=== PATIENT | female | born 1990 | race Caucasian/White ===

== ENCOUNTER → 2016-08-15 | Outpatient (CLI) | payer OTHER ==
[~2016-08-15] VITALS: Ht 154.9 cm; Wt 83.6 kg
[~2016-08-15] MED LIST: CEPHALEXIN500 M1 PO; FIORICET 325 MG1 TA1 PO; IBU600 MG PO; PERCOCET 325 MG1 TA2 PO; PRENATAL PO; ZANTAC 150MG T150 MG PO; ZOFRAN 4MG T4 MG/TAB
[2016-08-15 05:51] VITALS: BP 123/81; PULSE 73
[2016-08-15 06:00] VITALS: BP 110/56; BP 97/53; PULSE 64; PULSE 89
[2016-08-15 07:00] VITALS: BP 102/50; PULSE 72
[2016-08-15 07:18] LABS: BASO # 0.1 (0.0-0.2); BASO % 0.6 % (0.0-2.0); EOS # 0.7 (0.0-0.7); EOS % 8.9 % (0-4.0); GRAN # 4.3 (1.4-6.5); GRAN % 53.1 % (42.2-75.2); LYMPH # 2.3 (1.2-3.4); LYMPH % 27.8 % (20.0-51.0); MEAN CELL VOLUME 88 fl (80.0-100.0); MEAN CORPUSCULAR HGB CONC 33 g/dl (33.0-37.0); MEAN PLATELET VOLUME 11.7 fl (7.4-10.4); MONO # 0.7 (0.1-0.6); PLATELET COUNT 278 K/mm3 (130-400); RED BLOOD COUNT 3.97 M/mm3 (4.10-5.30); REDCELL DISTRIBUTION WIDTH-CV 13.1 % (11.5-14.5); WHITE BLOOD COUNT 8.2 K/mm3 (4.8-10.8)
[2016-08-15 07:33] LABS: HEMOGLOBIN 11.5 g/dl (12.5-16.0); MEAN CORPUSCULAR HEMOGLOBIN 29 pg (27.0-31.0)
[2016-08-15 07:38] LABS: ADJUSTED CALCIUM 9.9 mg/dL (8.4-10.2); ALBUMIN 3.3 gm/dL (3.5-5.0); BILIRUBIN,TOTAL 0.4 mg/dL (0.0-1.0); CALCIUM 9.3 mg/dL (8.4-10.2); CREATININE, serum 0.6 mg/dL (0.52-1.25); POTASSIUM 3.8 mmol/L (3.4-5.0); TOTAL PROTEIN 6.5 gm/dL (6.4-8.2)
[2016-08-15 08:00] VITALS: BP 118/44; PULSE 69
[2016-08-15 08:48] LABS: PH 6 (5-8); SQUAMOUS EPITHELIAL 0-2 /hpf; URINE APPEARANCE Hazy; URINE BACTERIA None Seen /hpf; URINE BILIRUBIN Negative (NEGATIVE); URINE BLOOD Negative (NEGATIVE); URINE COLOR Yellow; URINE GLUCOSE Negative (NEGATIVE); URINE KETONE Negative (NEGATIVE); URINE UROBILINOGEN Negative (NEGATIVE); URINE WBC 0-2 /hpf
[2016-08-15 09:00] VITALS: BP 118/84; PULSE 71
== END ==
LOC: LDRO 05:31
PROVIDERS: Obstetrics & Gynecology
DX: O26.893 Other specified pregnancy related conditions, third trimester (principal); R51 Headache; Z3A.33 33 weeks gestation of pregnancy

== ENCOUNTER 2016-09-11 17:30 | Outpatient (CLI) | payer OTHER ==
[~2016-09-11] VITALS: Ht 154.9 cm; Wt 81.4 kg
[2016-09-11 17:45] VITALS: BP 138/80; PULSE 83; TEMP 98.7
[2016-09-11] MEDS ORDERED: PRENATAL PO (17:50)
[2016-09-11] MEDS ORDERED: ZANTAC 150MG T150 MG PO (17:51)
[2016-09-11 18:05] VITALS: BP 123/79; PULSE 76
[2016-09-11 18:15] LABS: BASO % 0.4 % (0.0-2.0); EOS # 0.3 (0.0-0.7); EOS % 2.8 % (0-4.0); GRAN # 5.6 (1.4-6.5); GRAN % 62.7 % (42.2-75.2); HEMATOCRIT 38.5 % (37.0-47.0); HEMOGLOBIN 12.9 g/dl (12.5-16.0); LYMPH # 2.2 (1.2-3.4); LYMPH % 24.6 % (20.0-51.0); MEAN CELL VOLUME 86 fl (80.0-100.0); MEAN CORPUSCULAR HEMOGLOBIN 29 pg (27.0-31.0); MEAN CORPUSCULAR HGB CONC 34 g/dl (33.0-37.0); MEAN PLATELET VOLUME 12.6 fl (7.4-10.4); MONO # 0.8 (0.1-0.6); MONO % 8.8 % (1.7-9.3); PLATELET COUNT 293 K/mm3 (130-400); REDCELL DISTRIBUTION WIDTH-CV 13.4 % (11.5-14.5); WHITE BLOOD COUNT 8.9 K/mm3 (4.8-10.8)
[2016-09-11 18:19] LABS: PH 5 (5-8); URINE APPEARANCE Cloudy; URINE BACTERIA Rare /hpf; URINE BILIRUBIN Negative (NEGATIVE); URINE BLOOD Negative (NEGATIVE); URINE COLOR Yellow; URINE GLUCOSE Negative (NEGATIVE); URINE KETONE Negative (NEGATIVE); URINE UROBILINOGEN Negative (NEGATIVE)
[2016-09-11 18:41] LABS: ADJUSTED CALCIUM 9.5 mg/dL (8.4-10.2); ALBUMIN 3.7 gm/dL (3.5-5.0); BILIRUBIN,TOTAL 0.6 mg/dL (0.0-1.0); CALCIUM 9.3 mg/dL (8.4-10.2); CREATININE, serum 0.6 mg/dL (0.52-1.25); POTASSIUM 4.1 mmol/L (3.4-5.0); TOTAL PROTEIN 7.4 gm/dL (6.4-8.2)
== END 2016-09-11 20:10 | disposition home or self-care (01) ==
LOC: LDRO 17:30 → LDR 17:41 → LDRO 20:10
PROVIDERS: Obstetrics & Gynecology
DX: O21.0 Mild hyperemesis gravidarum (principal); Z3A.37 37 weeks gestation of pregnancy
CPT/HCPCS: J2405; J7120

== ENCOUNTER 2016-09-15 23:32 | Outpatient (CLI) | payer OTHER ==
[~2016-09-15] VITALS: Ht 154.9 cm; Wt 81.4 kg
[2016-09-15 23:30] VITALS: BP 120/82; PULSE 74; TEMP 98.2
[~2016-09-15 23:32] MED LIST changes: -CEPHALEXIN500 M1 PO; -FIORICET 325 MG1 TA1 PO; -IBU600 MG PO; -PERCOCET 325 MG1 TA2 PO; -ZOFRAN 4MG T4 MG/TAB
[2016-09-15 23:38] VITALS: BP 120/82; PULSE 74; TEMP 98.2
[2016-09-15] MEDS ORDERED: CEPHALEXIN500 M1 PO (23:48)
[2016-09-15] MEDS ORDERED: FIORICET 325 MG1 TA1 PO (23:50)
[2016-09-15] MEDS ORDERED: ZOFRAN 4MG T4 MG/TAB (23:51)
[2016-09-16] VITALS: BP 128/83; PULSE 73
[2016-09-16 00:15] VITALS: BP 123/89; PULSE 73
== END 2016-09-16 00:42 | disposition home or self-care (01) ==
LOC: LDRO 23:32
DX: O47.1 False labor at or after 37 completed weeks of gestation (principal); Z3A.38 38 weeks gestation of pregnancy

== ENCOUNTER 2016-09-21 07:00 | Inpatient (IN) | payer OTHER ==
[2016-09-21] VITALS (32 sets, daily range): BP systolic 109–154; BP diastolic 67–88; PULSE 71–96; TEMP 97.6–97.9
[~2016-09-21] VITALS: Ht 154.9 cm; Wt 82.7 kg
[~2016-09-21 07:00] MED LIST changes: +CEPHALEXIN500 M1 PO; +FIORICET 325 MG1 TA1 PO; +ZOFRAN 4MG T4 MG/TAB
[2016-09-21 10:05] LABS: BASO # 0.1 (0.0-0.2); BASO % 0.6 % (0.0-2.0); EOS # 0.4 (0.0-0.7); EOS % 3.5 % (0-4.0); GRAN # 5.9 (1.4-6.5); GRAN % 59.2 % (42.2-75.2); HEMATOCRIT 37.2 % (37.0-47.0); HEMOGLOBIN 12.4 g/dl (12.5-16.0); LYMPH # 2.8 (1.2-3.4); LYMPH % 28.2 % (20.0-51.0); MEAN CELL VOLUME 87 fl (80.0-100.0); MEAN CORPUSCULAR HEMOGLOBIN 29 pg (27.0-31.0); MEAN CORPUSCULAR HGB CONC 33 g/dl (33.0-37.0); MEAN PLATELET VOLUME 12.7 fl (7.4-10.4); MONO # 0.8 (0.1-0.6); MONO % 7.8 % (1.7-9.3); PLATELET COUNT 262 K/mm3 (130-400); REDCELL DISTRIBUTION WIDTH-CV 13.7 % (11.5-14.5)
[2016-09-22 04:00] VITALS: BP 110/68; PULSE 78; TEMP 98
[2016-09-22 06:55] VITALS: BP 121/83; PULSE 67; TEMP 97.6
[2016-09-22 09:27] LABS: HEMOGLOBIN 11.5 g/dl (12.5-16.0)
[2016-09-22] MEDS ORDERED: IBU600 MG PO (09:57)
[2016-09-22] MEDS ORDERED: PERCOCET 325 MG1 TA2 PO (09:58)
== END 2016-09-22 15:50 | disposition home or self-care (01) | DRG 775 ==
LOC: LDR 07:00 → OB 11:03
PROVIDERS: Obstetrics & Gynecology
PROC: 10E0XZZ Delivery of Products of Conception, External Approach (ICD-10-PCS; principal; 2016-09-21)
PROC: 0KQM0ZZ Repair Perineum Muscle, Open Approach (ICD-10-PCS; 2016-09-21)
PROC: 3E033VJ Introduction of Other Hormone into Peripheral Vein, Percutaneous Approach (ICD-10-PCS; 2016-09-21)
DX: O75.89 Other specified complications of labor and delivery (principal); O09.813 Supervision of pregnancy resulting from assisted reproductive technology, third trimester; O70.1 Second degree perineal laceration during delivery; Z3A.39 39 weeks gestation of pregnancy; Z37.0 Single live birth
CPT/HCPCS: J2405; J2590; J7120

== ENCOUNTER → 2016-09-27 | Outpatient (CLI) | payer OTHER ==
[~2016-09-27] MED LIST changes: +IBU600 MG PO; +PERCOCET 325 MG1 TA2 PO
== END ==
LOC: OLC 10:49
DX: Z39.1 Encounter for care and examination of lactating mother (principal); Z71.89 Other specified counseling

== ENCOUNTER → 2016-10-01 | Outpatient (CLI) | payer OTHER | LOC: OLC 10:48 | DX: Z39.1 Encounter for care and examination of lactating mother (principal); Z71.89 Other specified counseling ==